=== PATIENT | female | born 1990 | race Hispanic/Latino ===

== ENCOUNTER 2022-07-01 11:09 | Emergency (ER) | payer OTHER ==
--- OUTSIDE RECORDS SUMMARY | 2022-07-01 11:13 | XMS REPORT | Continuity of Care Document ---
:1990 Author Organization [facility] t Address [address] [place] [address] Care Team Providers Name Role Phone CLARISSA FAN Primary Care Physician Unavailable SUSI GLEASON Attending Clinician Unavailable Lab, Ang - Db Attending Clinician Unavailable Susi Aguirre Attending Clinician Clarissa Souza Attending Clinician CLARISSA FAN Attending Clinician Unavailable Doctor Unassigned, [place] Attending Clinician Unavailable Shruthi Burkett RN Attending Clinician Unavailable Only, Ang Db Test Attending Clinician Unavailable Unknown, Attending Attending Clinician Unavailable Bonnie Oseguera Attending Clinician UNKNOWN, ATTENDING Attending Clinician Unavailable [email or web address] Attending Clinician Unavailable CAROLINA LOPEZ Attending Clinician Unavailable [email or web address] Admitting Clinician Unavailable Payers Payer Name Policy Type Policy Number Effective Date Expiration Date S ource [employer] [place] [id number] 2022 00:00:00 WOMEN CIGNA II [id number] 2018 00:00:00 [employer] [place] [id number] 2018 00:00:00 Problems Condition Condition Condition Status Onset Resolution Last Treating Co mments Source Name Details Category Date Date Treatment Clinician Date Shortness Shortness Disease Active Uni vers of breath of breath 5-03 ity of 00:00: [place] 00 Medical Branch Need for Need for Disease Active Unive rs hepatitis hepatitis 5-03 ity of C C 00:00: [place] screening screening [facility] test test Branch History of History of Disease Active U nivers thyroid thyroid 6-12 ity of disease disease 00:00: [place] [address] Medical Branch Chronic Chronic Disease Active Univers fatigue fatigue 6-12 ity of 00:00: [place] [address] Medical Branch Decreased Decreased Disease Active Uni vers appetite appetite 6-12 ity of 00:00: [place] [facility] Anxiety Anxiety Disease Active Univers 6-12 ity of 00:00: [place] [address] Medical Branch Allergies, Adverse Reactions, Alerts Allergy Allergy Status Severity Reaction(s) Onset Inactive Treating Comm ents Source Name Type Date Date Clinician NO KNOWN Drug Active [facility] ALLERGIE Class ity of S [facility] Social History Social Habit Start Date Stop Date Quantity Comments Source Exposure to 2022-01-01 2022-01-11 Not sure [facility] SARS-CoV-2 00:00:00 13:09:00 [facility] (event) Branch Alcohol intake 2022-01-11 2022-01-11 Current [facility] 00:00:00 00:00:00 non-drinker of [facility] alcohol [place] (finding) Tobacco use and 2018-02-20 2018-02-20 Never used Universit y of exposure 00:00:00 00:00:00 [facility] Sex Ass[birth year] At [birth year] Universit y of 00:00:00 00:00:00 [facility] Smoking Status Start Date Stop Date Source Never smoker [facility] Branch Medications Ordered Filled Start Stop Current Ordering Indication Dosage Frequency Signature Comments Components Source Medication Medication Date Date Medication? Clinician (SIG) Name Name SERTraline Yes [id number] Take 1/2 Univers (ZOLOFT) 50 5-03 tab po ity of mg tablet 00:00: daily x 1 [place] 00 week, then Medical increase Branch to 1 tab po daily albuterol Yes [id number] 2{puff} Inhale 2 Univers 90 5-03 Puffs ity of mcg/actuati 00:00: every 6 [place] on inhaler 00 (six) Medical hours as Branch needed for Wheezing or Shortness of Breath. SERTraline Yes [id number] Take 1/2 Univers (ZOLOFT) 50 5-03 tab po ity of mg tablet 00:00: daily x 1 [place] 00 week, then Medical increase Branch to 1 tab po daily albuterol Yes [id number] 2{puff} Inhale 2 Univers 90 5-03 Puffs ity of mcg/actuati 00:00: every 6 [place] on inhaler 00 (six) Medical hours as Branch needed for Wheezing or Shortness of Breath. medroxyPROG Yes 150mg 150 mg by [facility] ESTERone 05-19 Intramuscu ity o f 150 mg/mL 10:05: lar route [place] as injection 04 every 3 Medical (three) Branch months. medroxyPROG Yes 150mg 150 mg by Univers ESTERone 9 Intramuscu ity o f 150 mg/mL 10:05: lar route [place] injection 04 every 3 Medical (three) Branch months. benzonatate Yes [id number] 100mg Take 1 Univers (TESSALON 9-08 capsule by Faith) 100 00:00: mouth 3 [place] mg capsule 00 (three) Medica l times Branch daily as needed for Cough. benzonatate Yes [id number] 100mg Take 1 Univers (TESSALON 9-08 capsule by kendall of MARCUS) 100 00:00: mouth 3 [place] mg capsule 00 (three) Medica l times Branch daily as needed for Cough. SERTraline 2021- No [id number] Take 1/2 Univers (ZOLOFT) 50 2-28 05-03 tab po ity o f mg tablet 00:00[place] 00:00 [place] x 1 [place], then Medical increase Branch to 1 tab po daily SERTraline 2021- No [id number] Take 1/2 Univers (ZOLOFT) 50 2-28 05-03 tab po ity o f mg tablet 00:00: 00:00 [place] x 1 [place] week, then Medical increase Branch to 1 tab po daily Immunizations Ordered Filled Immunization Date Status Comments [facility] e Immunization Name Name TDAP 2019-05-08 Completed [facility] 00:00:00 [facility] TDAP 2019-05-08 Completed University 00:00:00 [facility] Vital Signs Vital Name Observation Time Observation Value Comments Source Systolic blood 2022-01-11 18:37:00 102 mm[Hg] Tong jacome [facility] pressure [facility] Diastolic blood 2022-01-11 18:37:00 69 mm[Hg] Jj casillas [facility] Heart rate 2022-01-11 18:37:00 74 /min [facility] Body height 2022-01-11 18:37:00 162.6 cm [facility] Body weight 2022-01-11 18:37:00 53.524 kg [facility] BMI 2022-01-11 18:37:00 20.25 kg/m2 [facility] Oxygen saturation 2022-01-11 18:37:00 100 /min [facility] in Arterial blood [facility] anch by Pulse oximetry Procedures This patient has no known procedures. Encounters Start End Encounter Admission Attending Care Care Encounter Source Date/Time Date/Time Type Type Clinicians Facility Department ID 2022-02-11 2022-02-11 Outpatient Karsten GLEASON [facility] [id number] Univers 10:30:00 10:30:00 SUSI argueta [facility] 2022-01-11 2022-01-11 Cardroom Manager Lab, Ang - [facility] [id number] Univers 14:15:00 14:30:00 Visit Susi Gleason [facility] [id number] ity of [place] [id number] [place]?BLEA [phone] N[place] nakialeonid YASH [address] MEDICAL OFFICE BUILDING 2022-01-11 2022-01-[address] [facility] [id number] Univers 13:30:00 14:18:38 Visit Susi [facility] [id number] it y of [place] [id number] [place]?BLEA [id number] [address] MEDICAL OFFICE BUILDING 2022-01-11 2022-01-11 Outpatient R ROSIBEL [facility] [id number] Univers 13:30:00 14:18:38 SUSIDAPHNEY argueta [facility] 2022-01-11 2022-01-11 Outpatient R ROSIBEL [facility] [id number] Univers 14:15:00 14:15:00 SUSI argueta [facility] 2021-05-20 2021-05-20 [facility] [id number] Univers 00:00:00 00:00:00 Clarissa [facility] [id number] i ty of [place] [id number] [place]?Blea [phone] [address] Medical Office [facility] 2021-05-19 2021-05-19 [facility] [id number] Univers 09:57:50 10:56:50 Visit Clarissa [facility] [id number] i ty of [place] [id number] [place] Sj?[place]lea [id number] [address] Office [facility] 2021-05-19 2021-05-19 Outpatient R MITA [facility] [id number] Univers 10:00:00 10:00:00 CLARISSA ity [facility] 2021-05-19 2021-05-19 Orders Doctor DARLIN [id number] Univers 00:00:00 00:00:00 Only Unassigned, BELL [id number] ity of [place] [facility] [id number] [place] as [phone] [facility] [address] [place] 2021-05-07 2021-05-07 Letter DARLIN Burkett [id number] Univers 00:00:00 00:00:00 (Out) Shruthi [facility] [id number] it y of HOSPITAL [id number] [place] [phone] [facility] 0[address] [place] 2021-05-06 2021-05-06 Laboratory Only, Ang Db Test [facility] [id number] Univers 10:16:33 10:26:33 Only Unknown, Attending Health [id number] ity of Bonnie Vazquez [id number] [place] Sj?Blea [id number] Nj jt [address] Medical Office Building 2021-05-06 2021-05-06 Outpatient R PINKY [facility] [id number] Univers 10:20:00 10:20:00 ATTENDING [facility] 2020-04-27 2020-04-27 Outpatient R [facility] [id number] Univers 10:00:00 10:00:00 [facility] 2019-12-27 2019-12-27 Outpatient sebastian_k MMG MMG [id number] [place] 11:01:00 11:01:00 [facility] 2019-12-02 2019-12-02 Outpatient R JOHN [facility] [id number] Univers 13:20:00 13:20:00 CAROLINA argueta o f [facility] 2019-11-13 2019-11-13 [id number] Univers 09:00:00 09:00:00 [facility] 2019-11-07 2019-11-07 [facility] [id number] Univers 10:00:00 10:00:00 [facility] 2019-06-28 2019-06-28 Outpatient MHBL [id number] MHBL 01:15:00 01:15:00 2019-03-19 2019-03-19 Outpatient MHBL [id number] MHBL 09:49:00 09:49:00 2021-07-09 2014-09-24 Emergency R [facility] [id number] Univers 12:50:01 23:58:00 [facility] Results This patient has no known results.
[2022-07-01] MEDS ORDERED: ONDANSETRON 4 MG (ODT) TAB ONE (12:08)
[2022-07-01 12:23] LABS: Urine Blood Negative (Negative); Urine Glucose Negative (Negative); Urine Protein 1+ (Negative); Urine Specific Gravity >=1.030 (1.005-1.030); Urine pH 5.5 (5.0-7.0)
--- NOTE | 2022-07-01 13:16 | EDPHYS ---
Physician Documentation [facility] Name: Mili Villagomez Age: 32 yrs Sex: Female : 1990 Arrival Date: 07/01/2022 Time: 11:13 Bed Treatment Private MD: ANA Physician Jt Ventura HPI: 07/01 11:25 This 32 yrs old Female presents to ER via Ambulatory with complaints of Flu jmm Symptoms. 11:25 Onset: The symptoms/episode began/occurred gradually, 1 day(s) ago. Modifying factors: jmm The symptoms are alleviated by nothing. the symptoms are aggravated by nothing. Associated signs and symptoms: Pertinent positives: sore throat, vomiting. It is unknown whether or not the patient has had similar symptoms in the past. Historical: - Allergies: 11: No Known Allergies; iw - Home Meds: 11: None [Active]; iw - PMHx: 11: None; iw - PSHx: 11: None; iw - Immunization history:: Adult Immunizations up to date. - Social history:: Smoking status: Patient denies any tobacco usage or history of. ROS: 11:25 Constitutional: Positive for body aches, fever. jmm 11:25 Respiratory: Positive for cough. 11:25 Abdomen/GI: Positive for vomiting. 11:25 All other systems are negative. Exam: 11:25 Constitutional: This is a well developed, well nourished patient who is awake, alert, jmm and in no acute distress. Head/Face: atraumatic. Eyes: EOMI, no conjunctival erythema appreciated 11:25 Neck: Trachea midline, Supple Chest/axilla: Normal chest wall appearance and motion. Cardiovascular: Regular rate and rhythm. No edema appreciated Respiratory: Normal respirations, no respiratory distress appreciated 11:25 Skin: General appearance color normal MS/ Extremity: Moves all extremities, no obvious deformities appreciated, no edema noted to the lower extremities Neuro: Awake and alert Psych: Behavior is normal, Mood is normal, Patient is cooperative and pleasant 11:25 ENT: Posterior pharynx: erythema, that is mild. 11:25 Abdomen/GI: Inspection: gravid appearance, is noted, Palpation: abdomen is soft and non-tender, in all quadrants. Vital Signs: 12:32 BP 108 / 74; Pulse 99; Resp 18; Temp 99.4; Pulse Ox 100% on R/A; Pain 2/10; hb MDM: 11:25 Patient medically screened. rob 13:15 Data reviewed: vital signs, nurses notes. Counseling: I had a detailed discussion with keyona the patient and/or guardian regarding: the historical points, exam findings, and any diagnostic results supporting the discharge/admit diagnosis, the need for outpatient follow up, to return to the emergency department if symptoms worsen or persist or if there are any questions or concerns that arise at home. 07/01 11:25 Order name: SARS-COV-2 RT PCR (Document "Date of Onset" if Symptomatic); Complete Time: [facility] 12:30 07/01 11:25 Order name: Influenza Screen (a \\T\\ B); Complete Time: 12:02 [facility] 07/01 11:25 Order name: Strep; Complete Time: 12:02 [facility] 07/01 12:03 Order name: Throat Culture [facility] 07/01 12:23 Order name: Urine Dipstick-Ancillary; Complete Time: 12:30 [facility] 07/01 11:48 Order name: Urine Dipstick-Ancillary (obtain specimen); Complete Time: 12:09 [facility] Administered Medications: 12:09 Drug: Ondansetron 4 mg Route: PO; hb Disposition Summary: 07/01/22 13:15 Discharge Ordered Location: Home [facility] Condition: Stable [facility] Diagnosis - Influenza [facility] Followup: [facility] - With: Private Physician - When: 2 - 3 days - Reason: Recheck today's complaints, Continuance of care, Re-evaluation by your physician Discharge Instructions: - Discharge Summary Sheet [facility] - Influenza, Adult [facility] Forms: - Medication Reconciliation Form [facility] - Thank You Letter [facility] - Antibiotic Education [facility] - Prescription Opioid Use [facility] Prescriptions: - Tamiflu 75 mg Oral Capsule - take 1 tablet by ORAL route every 12 hours for 5 days; 10 tablet; Refills: 0, [facility] Product Selection Permitted - ondansetron 4 mg Oral tablet,disintegrating - take 1 tablet by ORAL route every 4-6 hours As needed; 20 tablet; Refills: 0, [facility] Product Selection Permitted Addendum: 07/05/2022 04:06 Co-signature as Attending Physician, Jt Ventura MD I agree with the assessment and c amaral plan of care. Signatures: [facility] Jt Cantrell MD MD cha Mickail, Joel, PA PA jmm Williams, Irene, RN RN Shawnee Ritter RN RN hb
--- NOTE | 2022-07-01 13:16 | ER ---
Nurse's Notes [facility] Name: Mili Villagomez Age: 32 yrs Sex: Female : 1990 Arrival Date: 07/01/2022 Time: 11:13 Bed Treatment Private MD: Diagnosis: Influenza Presentation: 07/01 11:20 Chief complaint: Patient states: yesterday started having chills, cough, h/a , iw vomiting, is 9 weeks , her kids were sick last week. Coronavirus screen: Client presents with at least one sign or symptom that may indicate coronavirus-19. Ebola Screen: Patient negative for fever greater than or equal to 101.5 degrees Fahrenheit, and additional compatible Ebola Virus Disease symptoms Patient denies exposure to infectious person. Patient denies travel to an Ebola-affected area in the 21 days before illness onset. No symptoms or risks identified at this time. Initial Sepsis Screen: Does the patient meet any 2 criteria? No. Patient's initial sepsis screen is negative. Does the patient have a suspected source of infection? No. Patient's initial sepsis screen is negative. Risk Assessment: Do you want to hurt yourself or someone else? Patient reports no desire to harm self or others. Onset of symptoms was June 30, 2022. 11:20 Method Of Arrival: Ambulatory iw 11:20 Acuity: SAMIRA 3 iw 11:20 Acuity: SAMIRA 4 iw Historical: - Allergies: 11:21 No Known Allergies; iw - Home Meds: 11:21 None [Active]; iw - PMHx: 11:21 None; iw - PSHx: 11:21 None; iw - Immunization history:: Adult Immunizations up to date. - Social history:: Smoking status: Patient denies any tobacco usage or history of. Screenin:29 Abuse screen: Denies threats or abuse. Denies injuries from another. Nutritional hb screening: No deficits noted. Tuberculosis screening: No symptoms or risk factors identified. Fall Risk None identified. Assessment: 12:29 General: Appears in no apparent distress. Behavior is calm, cooperative. Pain: Pain hb currently is 3 out of 10 on a pain scale. Neuro: Level of Consciousness is awake, alert, obeys commands, Oriented to person, place, time, situation. Cardiovascular: Patient's skin is warm and dry. Respiratory: Respiratory effort is even, unlabored, Respiratory pattern is regular, symmetrical. GI: Reports nausea, vomiting. : No signs and/or symptoms were reported regarding the genitourinary system. EENT: No signs and/or symptoms were reported regarding the EENT system. Derm: Skin is pink, warm \\T\\ dry. Musculoskeletal: No signs and/or symptoms reported regarding the musculoskeletal system. 13:41 Reassessment: Patient appears in no apparent distress at this time. Patient and/or hb family updated on plan of care and expected duration. Pain level reassessed. Patient is alert, oriented x 3, equal unlabored respirations, skin warm/dry/pink. Vital Signs: 12:32 BP 108 / 74; Pulse 99; Resp 18; Temp 99.4; Pulse Ox 100% on R/A; Pain 2/10; hb ED Course: 11:13 Patient arrived in ED. am2 11:18 Jono Hunter PA is PHCP. [facility] 11:18 Jt Ventura MD is Attending Physician. [facility] 11:21 Triage completed. iw 11:39 Strep Sent. zm 11:39 Influenza Screen (a \\T\\ B) Sent. zm 11:39 SARS-COV-2 RT PCR (Document "Date of Onset" if Symptomatic) Sent. 11:41 Rosanna Pineda, RN is Primary Nurse. iw 12:29 Patient has correct armband on for positive identification. hb 13:41 No provider procedures requiring assistance completed. Patient did not have IV access hb during this emergency room visit. Administered Medications: 12:09 Drug: Ondansetron 4 mg Route: PO; hb Medication: 12:29 VIS not applicable for this client. hb Outcome: 13:15 Discharge ordered by . [facility] 13:41 Discharged to home ambulatory. hb 13:41 Condition: stable 13:41 Discharge instructions given to patient, Instructed on discharge instructions, follow up and referral plans. medication usage, Demonstrated understanding of instructions, follow-up care, medications, Prescriptions given X 2. 13:41 Patient left the ED. hb Signatures: Jono Hunter PA PA Rosanna Cadena, RN Shawnee Juárez RN RN Niyah Keene am2 Colleen Mcclendon
[2022-07-01 13:46] VITALS: BP 108/74; TEMP 99.4; O2SAT 100
== END 2022-07-01 13:41 | disposition home or self-care (01) ==
LOC: ER 11:09
DX: J09.X2 Influenza due to identified novel influenza A virus with other respiratory manifestations (principal)
CPT/HCPCS: 87070; 87081; 81003; 87804 ×2; 99283; U0003; Q0162

== ENCOUNTER 2025-06-17 21:50 | Emergency (ER) | payer BC, OTHER ==
--- OUTSIDE RECORDS SUMMARY | 2025-06-17 21:54 | XMS REPORT | Continuity of Care Document ---
Author Name Unknown Address [address] [facility] [address] [place] [address] [facility] Address [address] [facility] [place] [address] Care Team Providers Care Parts Runner Name Role Phone PCP, PATIENT DOES NOT HAVE A Primary Care Physic nia Unavailable MILAGRO CASTRO Attending Clinician Unavailab Tika Villatoro Attending Clinician Milagro Castro DO Attending Clinician Basilio Sutherland Attending Clinician Unavailab JULIO CESAR Ramsay Attending Clinician Unavailable ROMEO CAMPBELL Attending Clinician UnavailSUSI Cornelius Attending Clinician Unavailable Lab, Ang - Db Attending Clinician Unavailable Susi Aguirre Attending Clinician [phone] Clarissa Souza Attending Clinician CLARISSA FAN Attending Clinician Unavailable Doctor Unassigned, [place] Attending Clinician Matt Burkett RN, Shruthi Wong Attending Clinician Unavailab selvin Only, Ang Db Test Attending Clinician Unavailabl e Unknown, Attending Attending Clinician Unavailab selvin Vazquez [employer], Bonnie Attending Clinician [phone] UNKNOWN, ATTENDING Attending Clinician Unavailab selvin marquez_iain Attending Clinician Unavailable CAROLINA LOPEZ Attending Clinician Unavailable Basilio Sutherland Admitting Clinician Unavailab JULIO CESAR Ramsay Admitting Clinician Unavailable jimmy_iain Admitting Clinician Unavailable Payers Payer Name Policy Type Policy Number Effective Date Expirati on Date Source [employer] OUT OF NETWORK [id number] 2022 00:00:00 [facility] [id number] 2022 00:00:00 2023 00:00:00 [facility] [place] [facility] [id number] 2022 00:00:00 [employer] II [id number] 2018 00:00:00 Problems Condition Name Condition Details Condition Category Status Onset Date Resolution Date Last Treatment Date Treating Clinician Comments Source Hyperchole sterolemia Hyperchole sterolemia Problem Active 2024-09 0-02 00:00: 00 [facility] Medical Cervical atypism Cervical Atypism Problem Active 4-10 00:00: 00 [facility] Abdominal bloating Abdominal Bloating Problem Active 4-10 00:00: 00 [facility] Acute urinary tract infection Acute Urinary Tract Infection Problem Active 1-28 00:00: 00 [facility] Vaginal bleeding during Vaginal bleeding during Disease Active 3-08 00:00: 00 [facility] 28 weeks gestation of 28 weeks gestation of Disease Active 3-08 00:00: 00 [facility] Shortness of breath Shortness of breath Disease Active 5-03 00:00: 00 [facility] Need for hepatitis C screening test Need for hepatitis C screening test Disease Active 5- 00:00: 00 [facility] History of thyroid disease History of thyroid disease Disease Active 02-20 00:00: 00 [facility] Chronic fatigue Chronic fatigue Disease Active 02-20 00:00: 00 [facility] Decreased appetite Decreased appetite Disease Active 02-20 00:00: 00 [facility] Anxiety Anxiety Disease Active 02-20 00:00: 00 [facility] Allergies, Adverse Reactions, Alerts Allergy Name Allergy Type Status Severity Reaction(s) Onset Date Inactive Date Treating Clinician Comments Source No Known Allergie s DA Active U 2015-09 00:00: 00 [facility] NO KNOWN ALLERGIE S Drug Class Active [facility] Social History Social Habit Start Date Stop Date Quantity Comments Source ASSERTION 2022-05-12 00:00:00 [facility] Alcohol intake 2023-04-26 00:00:00 2023-04-26 00:00:00 Ex-drinker (finding) [facility] Tobacco use and exposure 2022-11-16 00:00:00 2022-11-16 00:00:00 Smokeless tobacco non-user [facility] Exposure to SARS-CoV-2 (event) 2022-01-01 00:00:00 2022-01-11 13:09:00 Not sure [facility] History of Social function 2022-01-11 00:00:00 2022-01-11 00:00:00 [facility] Sex Assigned At 1990 00:00:00 1990 00:00:00 [facility] Smoking Status Start Date Stop Date Source Never Smoker [facility] Medical Medications Ordered Medication Name Filled Medication Name Start Date Stop Date Current Medication? Ordering Clinician Indication Dosage Frequency Signature (SIG) Comments Components Source Nexplanon Nexplanon 01-09 00:00: 00 No Nexplanon [facility] vit no.124/iron /folic ( VITAMIN ORAL) 3-10 10:48: 48 Yes Take by mouth. [facility] SERTraline (ZOLOFT) 50 mg tablet 01-11 00:00: 00 Yes [id number] Take 1/2 tab po daily x 1 week, then increase to 1 tab po daily [facility] albuterol 90 mcg/actuati on inhaler 01-11 00:00: 00 Yes [id number] 2{puff} Inhale 2 Puffs every 6 (six) hours as needed for Wheezing or Shortness of Breath. [facility] medroxyPROG ESTERone 150 mg/mL injection 05-19 10:05: 04 Yes 150mg 150 mg by Intramuscu lar route every 3 (three) months. [facility] benzonatate (TESSALON PERLES) 100 mg capsule 05-19 00:00: 00 Yes [id number] 100mg Take 1 capsule by mouth 3 (three) times daily as needed for Cough. [facility] SERTraline (ZOLOFT) 50 mg tablet 11-08 00:00: 00 01-11 00:00 :00 No [id number] Take 1/2 tab po daily x 1 week, then increase to 1 tab po daily [facility] Vital Signs Vital Name Observation Time Observation Value Comments S ource Height 2024-12-19 00:00:00 64 [in_i] [facility] BP Diastolic 2024-12-19 00:00:00 90 mm[Hg] [facility] Body Weight 2024-12-19 00:00:00 142.6 [lb_av] [facility] BMI (Body Mass Index) 2024-12-19 00:00:00 24.5 kg/m2 [facility] BP Systolic 2024-12-19 00:00:00 129 mm[Hg] [facility] Body Weight 2024-10-08 00:00:00 137 [lb_av] [facility] BP Systolic 2024-10-08 00:00:00 125 mm[Hg] [facility] BP Diastolic 2024-10-08 00:00:00 81 mm[Hg] [facility] BMI (Body Mass Index) 2024-10-08 00:00:00 23.5 kg/m2 [facility] Height 2024-10-08 00:00:00 64 [in_i] [facility] Systolic blood pressure 2023-04-27 02:38:33 151 mm[Hg] [facility] Diastolic blood pressure 2023-04-27 02:38:33 97 mm[Hg] [facility] Heart rate 2023-04-27 02:38:33 74 /min [facility] Respiratory rate 2023-04-27 02:38:33 20 /min [facility] Body temperature 2023-04-26 23:59:00 37.22 Giselle [facility] Body height 2023-04-26 23:59:00 162.6 cm [facility] Body weight 2023-04-26 23:59:00 59.285 kg [facility] BMI 2023-04-26 23:59:00 22.43 kg/m2 [facility] Oxygen saturation in Arterial blood by Pulse oximetry 2023-04-26 23:59:00 100 /min [facility] Systolic blood pressure 2022-01-11 18:37:00 102 mm[Hg] [facility] Diastolic blood pressure 2022-01-11 18:37:00 69 mm[Hg] [facility] Heart rate 2022-01-11 18:37:00 74 /min [facility] Body height 2022-01-11 18:37:00 162.6 cm [facility] Body weight 2022-01-11 18:37:00 53.524 kg [facility] BMI 2022-01-11 18:37:00 20.25 kg/m2 [facility] Oxygen saturation in Arterial blood by Pulse oximetry 2022-01-11 18:37:00 100 /min [facility] Procedures Procedure Date / Time Performed Performing Clinician Source US TRANSVAGINAL 2024-12-27 00:00:00 [facility] COMP. METABOLIC PANEL (00571) 2023-04-27 01:39:00 Tika Casper [facility] TOTAL BETA HCG ASSAY 2023-04-27 01:39:00 Girma Casper [facility] CBC WITH DIFF 2023-04-27 01:39:00 Tika Casper [facility] URINALYSIS 2023-04-27 01:39:00 Tika Casper [facility] POCT TEST 2023-04-27 01:39:00 Delilah Casper [facility] ASSIGNMENT OF BENEFITS 2023-04-27 00:38:43 Docto r Unassigned, [place] [facility] CONSENT/REFUSAL FOR DIAGNOSIS AND TREATMENT 2023-04-26 23:36:00 Doctor Unassigned, [place] [facility] [id number] 2022-12-31 00:00:00 JELLYSOMMER [facility] Section 2022-12-31 00:00:00 [facility] Medical Augmentation Mammoplasty 2020-02-10 00:00:00 [facility] Medical Encounters Start Date/Time End Date/Time Encounter Type Admission Type Attending [facility] Care Facility Care Department Encounter ID Source 2025-06-06 00:00:00 2025-06-06 00:00:00 TOSIN Lizama: [address], [place] [phone] , Ph. Formerly [facility] GC_GCBZW_Allie Montemayor* [id number] [facility] 2025-01-01 00:00:00 2025-01-01 00:00:00 LAURYN Moy: [address], [place] [phone] , Ph. [facility] GC_GCBZW_Allie Montemayor* [id number] [facility] 2024-12-27 00:00:00 2024-12-27 00:00:00 Kelly Elizabeth MD: [address], [place] [phone] , Ph. [facility] GC_GCBZW_Allie Montemayor* [id number] [facility] 2024-12-19 00:00:00 2024-12-19 00:00:00 TOSIN Lizama: [address], [place] [address] , Ph. [facility] - GC_GCBZW_La ke Sikes* [id number] [facility] 2024-10-08 00:00:00 2024-10-08 00:00:00 Mary Niharika, [employer]: [address], [place] [address] , Ph. [facility] - GC_GCBZW_La ytler Sikes* [id number] [facility] 2023-04-26 19:01:00 2023-04-26 21:40:00 Emergency MILAGRO GO [facility] ERT [id number] [facility] 2023-04-26 19:01:00 2023-04-26 21:40:00 Emergency Tika Casper Sandra J [facility] ..840.114 350.1.13.10 4.2.7.2.686 [id number] [facility] 2022-12-31 01:51:00 2023-01-03 18:52:00 Inpatient EM Basilio Sutherland [facility] OBPP [id number] [facility] 2022-11-16 16:22:00 2022-11-16 22:49:00 Outpatient JULIO CESAR CORBIN [facility] DORIS [id number] [facility] 2022-10-22 14:25:00 2022-10-22 16:26:00 Emergency ROMEO JONES [id number] [facility] 2022-02-11 10:30:00 2022-02-11 10:30:00 Outpatient SUSI GIMENEZ [facility] [id number] [facility] 2022-01-11 14:15:00 2022-01-11 14:30:00 Merchandise Deliverer Visit Lab, Aleksey - Susi Monsalve [facility] ..840.114 350.1.13.10 4.2.7.2.686 [id number] [facility] 2022-01-11 13:30:00 2022-01-11 14:18:38 Office [facility] 1.2.840.114 350.1.13.10 4.2.7.2.686 [id number] [facility] 2022-01-11 13:30:00 2022-01-11 14:18:38 Outpatient R SUSI GLEASON [facility] [id number] [facility] 2022-01-11 14:15:00 2022-01-11 14:15:00 Outpatient R SUSI GLEASON [facility] [id number] [facility] 2021-05-20 00:00:00 2021-05-20 00:00:00 Telephone Buddy Clarissa Adams [facility] 1.840.114 350.1.13.10 4.2.7.2.686 [id number] [facility] 2021-05-19 09:57:50 2021-05-19 10:56:50 Office Visit Clarissa Fan [facility] 1..840.114 350.1.13.10 4.2.7.2.686 [id number] [facility] 2021-05-19 10:00:00 2021-05-19 10:00:00 Outpatient R CLARISSA FAN [facility] [id number] [facility] 2021-05-19 00:00:00 2021-05-19 00:00:00 Orders Only Doctor Unassigned, [place] [facility] 1.840.114 350.1.13.10 4.2.7.2.686 [id number] [facility] 2021-05-07 00:00:00 2021-05-07 00:00:00 Letter (Out) Madelaine Shruthi Wong [facility] 1..840.114 350.1.13.10 4.2.7.2.686 [id number] [facility] 2021-05-06 10:16:33 2021-05-06 10:26:33 Laboratory Only Only, Ang Db Test Unknown, Attending [facility] 1..840.114 350.1.13.10 4.2.7.2.686 [id number] [facility] 2021-05-06 10:20:00 2021-05-06 10:20:00 Outpatient R UNKNOWN, ATTENDING [facility] [id number] [facility] 2020-04-27 10:00:00 2020-04-27 10:00:00 Outpatient R [facility] [id number] [facility] 2019-12-02 13:20:00 2019-12-02 13:20:00 Outpatient R CAROLINA LOPEZ [facility] [id number] [facility] 2019-11-13 09:00:00 2019-11-13 09:00:00 Outpatient R CLARISSA FAN [facility] [id number] [facility] 2019-11-07 10:00:00 2019-11-07 10:00:00 Outpatient R CLARISSA FAN [facility] [id number] [facility] 2019-06-28 01:15:00 2019-06-28 01:15:00 Outpatient [facility]BL [facility] [id number] [facility] 2019-03-19 09:49:00 2019-03-19 09:49:00 Outpatient [facility] [id number] [facility] 2021-07-09 12:50:01 2014-09-24 23:58:00 Emergency R [facility] [id number] [facility] Results Test Description Test Time Test Comments Results Result Co mments Source [facility] [Units/volume] in Serum or [id number] 00:00:00* Test Item Value Reference Range Interpretation Comme nts TSH (test code = TSH) 1.180 uIU/mL 0.500-4.530 [facility] - Serum or [id number] 00:00:00* Test Item Value Reference Range Interpretation Comme nts cholesterol (test code = cholesterol) 206 mg/dL 0-200 H triglycerides (test code = triglycerides) 100 mg/dL 10-150 HDL cholesterol (test code = HDL cholesterol) 57 mg/dL >50 HDL risk factor (test code = HDL risk factor) 3.6 calc. VLDL cholesterol (test code = VLDL cholesterol) 20 calc dldl (test code = dldl) 137 mg/dL <100 H [facility] Auto Differential panel - [id number] 00:00:00* Test Item Value Reference Range Interpretation Comme nts WBC (test code = WBC) 5.7 10 3.7-12.0 RBC (test code = RBC) 5.31 10 3.60-5.50 HGB (test code = HGB) 15.4 g/dL 11.5-15.6 HCT (test code = HCT) 46.7 % 34.5-46.5 H MCV (test code = MCV) 87.8 um 80.0-102.0 MCH (test code = MCH) 28.9 pg 25.0-34.1 MCHC (test code = MCHC) 32.9 g/dL 29.0-35.0 RDW (test code = RDW) 14.8 % 10.9-16.9 plt (test code = plt) 230 10 136-392 MPV (test code = MPV) 9.6 um 7.4-11.1 gran % (test code = gran %) 64.4 % 36.0-78.0 lymph % (test code = lymph %) 28.3 % 12.0-48.0 mono % (test code = mono %) 5.1 % 0.0-13.0 eos % (test code = eos %) 2 % 0-8 baso % (test code = baso %) 1 % 0-2 gran # (test code = gran #) 3.7 10 1.2-6.8 lymph # (test code = lymph #) 1.6 10 0.7-3.2 mono # (test code = mono #) 0.3 10 0.1-0.8 eos # (test code = eos #) 0.1 10 0.0-0.4 baso # (test code = baso #) 0.0 10 0.0-0.2 [facility] Medicalurinalysis, [id number] 09:02:37* Test Item Value Reference Range Interpretation Comme [facility] Leukocytes (test code = Leukocytes) Negative Nitrite (test code = Nitrite) negative Urobilinogen (test code = Urobilinogen) Normal Protein (test code = Protein) Negative pH (test code = pH) 5.0 Blood (test code = Blood) Negative Specific [place] (test code = Specific [place]) 1.030 Ketone (test code = Ketone) Negative Bilirubin (test code = Bilirubin) Negative Glucose (test code = Glucose) Negative Appearance (test code = Appearance) Cloudy Color (test code = Color) Dark Yellow [facility] MedicalPOCT [id number] 01:39:00* Test Item Value Reference Range Interpretation Comme [facility] POCT PREG (test code = 1605) Negative On board controls acceptable with C Line (test code = 3574) Yes POCT PREG LOT # (test code = 3575) [id number] POCT PREG TEST DATE ( test code = 3576) 09/13/2024 Lab Interpretation (test cod e = 46005-9) Normal [facility] 15:31[facility]00* Test Item Value Reference Range Interpretation Comme [facility] SURGICAL (test code = SR) R UN DATE: 01/06/23 [facility] PAGE 1 RUN TIME: 1531 Specimen Inquiry RUN USER: INTERFACE P ATIENT: DONNA RIVERS LOC: ESTHER U #: [id number] AGE/SX: 32 ROOM: [facility] RE12/31/22REG DR: Basilio Sutherland MD : 89 BED: A DIS: 01/03/23 STATUS: DIS IN TLOC: SPEC #: [id number] RECD: 01/02/23 STATUS: BRENDA RE #: [id number] KERLINE: 12/31/22 [facility] DR: Gre[address] Dr ENTERED: 01/02/23 SP TYPE: SURGICAL OTHR DR: DOES_NOT KNOW Basilio Sutherland MDORDERED: ANATOMIC SPEC, SPEC TRACK, [id number] COPIES TO: DOES_[place] [address] [facility] [address] [place] [address] [email or web address] [facility] [address] [place] [address] PROCEDURES: [id number] (01/02/23) TISSUES: A. PLACENTA, THIRD TRIMESTER (28 + WEEKS) FINAL DIAGNOSIS PLACENTA :- Mature villous morphology, 450 grams, (50th percentile for estimated gestational age). - Mild low grade chronic villitis of undetermined etiology.-Mild acute chorionic plate inflammation. - Umbilical cord with appropriate coils per 10 cm.- Three vessel umbilical cord with no histologic abnormalities. - membranes with no significant diagnostic abnormalities. GROSS DESCRIPTION Received in formalin is a rain placenta with the placental disc measuring 15 x 15 x2.5 cm and weighing 450 gm with a 2 cm in diameter by 16 cm in length at edge, 3 vesselcord with 2 coils per 10 cm. The membranes are mercado and translucent with marginal insertionwith the site of rupture 2 cm from the placental disc. The placental disc has a beefy-redcut surface with no gross lesions identified. Hadoop Developer sections are submitted asfollows:A1: Membrane roll and cordA2: Full thickness placental discA3: Maternal and surfaces CONTINUED ON NEXT PAGE R UN DATE: 01/06/23 [facility] PAGE 2 RUN TIME: 1531 Specimen Inquiry RUN USER: INTERFACE S PEC #: [id number] PATIENT: SAM RIVERSLUPE #[id number] (Continued) GROSS DESCRIPTION (Continued) Technical component performed at [facility] [place] [address], [place] [address] Immunohistochemical stains and Special Stains are performed at [facility] [place], [address] [facility], [address], [place] [address] Unless gross only, the diagnosis is based upon microscopic examination. Immunohistochemistry: This test was developed and its performance characteristicsdetermined by this laboratory. It has not been approved nor does it need approval by [place] Javier FDA. Appropriate positive and negative controls are reviewed and judged to beacceptable. This laboratory is certified under the Clinical Laboratory ImprovementAmendments (CLIA-88) as qualified to perform high complexity clinical laboratory testing. CLINICAL INFORMATION 12/31/22, IUP 35.2 WEEKS, COMPLETE PREVIA. ------ Signed SIGNATURE ON FILE AtulAleksandra 01/06/23 1531 END OF REPORT Notes Date/Time Note Provider Source 2023-04-26 21:40:08 Formatting of this n ote might be different from the original. Pt given printed and verbal discharge instructions regarding vaginal bleeding. Pt verbalized understanding of instructions, pt awake alert oriented, resp reg unlabored, skin w/d, color appropriate for race, moves all ext well,pt encouraged to follow up with pcp and or OBGYN Advised to seek medical attention for new/prolonged/worsening of symptoms. Awake, alert oriented, resp reg unlabored, skin w/d, pt leaving amb with steady gait, in no apparent distress Mayelin Garsia RN [facility] 2023-04-26 18:57:00 Formatting of this n ote might be different from the original. CC: patient presents to the ER with complaints of vaginal bleeding that began two days ago with spotting and bleeding became heavy today. Patient states she had a positive test today. PMHx: see history Awake, alert, oriented, resp reg unlabored, skin warm and dry, color appropriate for race, moves all ext without difficulty, amb without assistance. Appears in no distress. Toyin Rocha RN [facility] 2023-04-26 18:35:00 Formatting of this n ote is different from the original. The patient was signed out pending reevaluation as well as those of her laboratory studies. The patient is doing well here in the ER. Here in the ER her UPT is negative and her beta hCG is 0 as well. Her hemoglobin hematocrit are good and show no need for blood transfusion. She remained stable here in the ER and is okay for discharge home with PCP follow-up. Recent Results (from the past 24 hour(s)) CBC WITH DIFF Collection Time: 04/26/23 8:39 PM Result Value Ref Range WBC 7.98 4.30 - 11.10 10*3/?L RBC 5.11 3.93 - 5.25 10*6/?L HGB 15.2 (H) 11.6 - 15.0 g/dL HCT 44.4 35.7 - 45.2 % MCV 86.9 80.6 - 95.5 fL MCH 29.7 25.9 - 32.8 pg MCHC 34.2 31.6 - 35.1 g/dL RDW-SD 42.3 39.0 - 49.9 fL RDW-CV 13.4 12.0 - 15.5 % PLT 239 166 - 358 10*3/?L MPV 11.0 9.5 - 12.9 fL NRBC/100 WBC 0.0 0.0 - 10.0 /100 WBCs NRBC x10^3 <0.01 10*3/?L GRAN MAT (NEUT) % 65.3 % IMM GRAN % 0.40 % LYMPH % 25.4 % MONO % 7.1 % EOS % 1.0 % BASO % 0.8 % GRAN MAT x10^3(ANC) 5.21 1.88 - 7.09 10*3/uL IMM GRAN x10^3 0.03 0.00 - 0.06 10*3/uL LYMPH x10^3 2.03 1.32 - 3.29 10*3/uL MONO x10^3 0.57 0.33 - 0.92 10*3/uL EOS x10^3 0.08 0.03 - 0.39 10*3/uL BASO x10^3 0.06 0.01 - 0.07 10*3/uL POCT TEST Collection Time: 04/26/23 8:39 PM Result Value Ref Range POCT PREG Negative On board controls acceptable with C Line Yes POCT PREG LOT # [id number] POCT PREG TEST DATE 09/13/2024 COMP. METABOLIC PANEL (17721) Collection Time: 04/26/23 8:39 PM Result Value Ref Range NA 140 135 - 145 mmol/L K 3.7 3.5 - 5.0 mmol/L CL 105 98 - 108 mmol/L CO2 TOTAL 26 23 - 31 mmol/L AGAP 9 2 - 16 BUN 16 7 - 23 mg/dL GLUCOSE 94 70 - 110 mg/dL CREATININE 0.85 0.50 - 1.04 mg/dL TOTAL BILI 1.1 0.1 - 1.1 mg/dL CALCIUM 9.3 8.6 - 10.6 mg/dL T PROTEIN 8.1 6.3 - 8.2 g/dL ALBUMIN 4.7 3.5 - 5.0 g/dL ALK PHOS 63 34 - 122 U/L ALTv 12 5 - 35 U/L AST(SGOT) 22 13 - 40 U/L eGFR 78.0 mL/min/1.73m2 TOTAL BETA HCG ASSAY Collection Time: 04/26/23 8:39 PM Result Value Ref Range BETA HCG <2.39 Non- female and male patients: <5 mIU/mL Milagro Castro DO 04/26/23 2135 [employer] [facility]
--- NOTE | 2025-06-17 21:59 | EDPHYS ---
Physician Documentation [facility] Name: Mili Villagomez Age: 35 yrs Sex: Female : 1990 Arrival Date: 06/17/2025 Time: 21:50 Bed IW6 Private MD: ED Physician Dinora Cabello HPI: 06/17 23:10 This 35 yrs old Female presents to ER via Ambulatory with complaints of sb4 Toothache. 23:10 Patient reports right upper tooth/gum pain for a few days now. States that she had a sb4 routine cleaning last week and ever since she has had pain in that area. She states she has noticed some redness and swelling in her gum, but is not sure if that is because she has been brushing harder to try and make it feel better. She denies any prior issues with that tooth, did not have any fillings or injections there. She does have a crown on that tooth. Denies any fever or chills. States she took Tylenol Motrin prior to arrival with minimal relief in symptoms. 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 - Infectious Disease History:: Denies. - Social history:: Smoking status: Patient denies any tobacco usage or history of. ROS: 23:10 Constitutional: Negative for fever, chills, and weight loss, sb4 23:10 ENT: Positive for dental pain, Gum pain 23:10 All other systems are negative, Exam: 23:10 Head/Face: Normocephalic, atraumatic. Eyes: Extra-ocular motions intact. Periorbital sb4 areas with no swelling, redness, or edema. Respiratory: No increased work of breathing, no retractions or nasal flaring. Skin: Warm, dry with normal turgor. Normal color with no rashes, no lesions, and no evidence of cellulitis. 23:10 Constitutional: The patient appears alert, awake, uncomfortable, 23:10 ENT: Dental exam: gum swelling, that is mild, specifically in the upper left first molar (#14), pain, Vital Signs: 21:54 BP 147 / 101; Pulse 70; Resp 18; Temp 98.1; Pulse Ox 100% ; Weight 68.04 kg; Height 5 cp4 ft. 4 in. ; Pain 10; 21:54 Body Mass Index 25.75 (68.04 kg, 162.56 cm) cp4 21:54 Pain Scale: Adult cp4 MDM: 21:52 Medical Screening Exam initiated sb4 23:10 Differential diagnosis: dental caries, gingivitis, dental abscess. Data reviewed: vital sb4 signs, nurses notes, and as a result, I will discharge patient. Counseling: I had a detailed discussion with the patient and/or guardian regarding the historical points, exam findings, and any diagnostic results supporting the discharge/admit diagnosis, the need for outpatient follow up, a dentist, to return to the emergency department if symptoms worsen or persist or if there are any questions or concerns that arise at home. ED course: Patient has a dentist appointment tomorrow. Will provide analgesia and prescription for antibiotics at this time. Administered Medications: 22:03 Drug: Hydrocodone-Acetaminophen PO (7.5 mg-325 mg) 1 tabs PO once Route: PO; cp4 22:04 Follow up: Response: No adverse reaction cp4 22:03 Drug: Amoxicillin-Clavulanate PO 875 mg PO once Route: PO; cp4 22:04 Follow up: Response: No adverse reaction cp4 22:03 Drug: Ondansetron PO 4 mg PO once Route: PO; cp4 22:04 Follow up: Response: No adverse reaction cp4 Disposition Summary: 06/17/25 21:58 Discharge Ordered Notes: Location: Home sb4 Problem: new sb4 Symptoms: are unchanged sb4 Condition: Stable sb4 Diagnosis - Acute gingivitis sb4 - Acute dental pain sb4 Followup: sb4 - With: Private Physician - When: As needed - Reason: Recheck today's complaints, Re-evaluation by your physician Discharge Instructions: - Discharge Summary Sheet sb4 - Dental Pain, [id number] sb4 - Gingivitis, [id number] sb4 Forms: - Antibiotic Education sb4 - Patient Portal Instructions sb4 - Leadership Thank You Letter sb4 Prescriptions: - Augmentin 875-125 mg Oral tablet - take 1 tablet ORAL route every 12 hours for 7 days; 14 tablet; Refills: 0, sb4 Product Selection Permitted - Ibuprofen 800 mg Oral Tablet - take 1 tablet ORAL route every 8 hours As needed take with food; 30 tablet; sb4 Refills: 0, Product Selection Permitted Signatures: Debby Villalobos PA-C PA-C sb4 Melinda Piedra cp4
--- NOTE | 2025-06-17 21:59 | ER ---
Nurse's Notes [facility] Name: Mili Villagomez Age: 35 yrs Sex: Female : 1990 Arrival Date: 06/17/2025 Time: 21:50 Bed IW6 Private MD: Diagnosis: Acute gingivitis;Acute dental pain Presentation: 06/17 21:54 Chief complaint: Patient states: toothache that started after going to the dentist the cp4 other day. Coronavirus screen: Client denies travel out of the [place] in the last 14 days. At this time, the client does not indicate any symptoms associated with coronavirus-19. Ebola Screen: Patient negative for fever greater than or equal to 101.5 degrees Fahrenheit, and additional compatible Ebola Virus Disease symptoms Patient denies exposure to infectious person. Patient denies travel to an Ebola-affected area in the 21 days before illness onset. No symptoms or risks identified at this time. Initial Sepsis Screen: Does the patient meet any 2 criteria? No. Patient's initial sepsis screen is negative. Does the patient have a suspected source of infection? No. Patient's initial sepsis screen is negative. Risk Assessment: Do you want to hurt yourself or someone else? Patient reports no desire to harm self or others. Onset of symptoms was June 14, 2025. 21:54 Method Of Arrival: Ambulatory cp4 21:54 Acuity: SAMIRA 5 cp4 Triage Assessment: 21:56 General: Appears in no apparent distress. uncomfortable, Behavior is calm, cooperative, cp4 appropriate for age. Pain: Complains of pain in mouth Pain does not radiate. Pain currently is 10 out of 10 on a pain scale. EENT: Reports pain in mouth. EVENT MARKETING INTERN: 21:56 LMP 05/31/2025, unknown cp4 Historical: - Allergies: 21:56 No Known Allergies; cp4 - Immunization history:: Adult Immunizations up to date. - Infectious Disease History:: Denies. - Social history:: Smoking status: Patient denies any tobacco usage or history of. Screenin:58 [facility] ED Fall Risk Assessment (Adult) History of falling in the last 3 months, cp4 including since admission No falls in past 3 months (0 pts) Confusion or Disorientation No (0 pts) Intoxicated or Sedated No (0 pts) Impaired Gait No (0 pts) Mobility Assist Device Used No (0 pt) Altered Elimination No (0 pt) Score/Fall Risk Level 0 - 2 = Low Risk Oriented to surroundings, Maintained a safe environment, Assessed \T\ reinforced patient's understanding of fall precautions, Hourly rounding (assess needs \T\ fall precautionary measures) done. Abuse screen: Denies threats or abuse. Denies injuries from another. Nutritional screening: No deficits noted. Tuberculosis screening: No symptoms or risk factors identified. Never had TB. Assessment: 21:58 General: Appears in no apparent distress. uncomfortable, Behavior is calm, cooperative, cp4 appropriate for age. Pain: Complains of pain in mouth Pain does not radiate. Pain currently is 10 out of 10 on a pain scale. Neuro: Level of Consciousness is awake, alert, obeys commands, Oriented to person, place, time, situation. Cardiovascular: Patient's skin is warm and dry. Respiratory: Airway is patent Respiratory effort is even, unlabored. GI: No signs and/or symptoms were reported involving the gastrointestinal system. : No signs and/or symptoms were reported regarding the genitourinary system. EENT: No signs and/or symptoms were reported regarding the EENT system. Derm: No signs and/or symptoms reported regarding the dermatologic system. Musculoskeletal: No signs and/or symptoms reported regarding the musculoskeletal system. Vital Signs: 21:54 BP 147 / 101; Pulse 70; Resp 18; Temp 98.1; Pulse Ox 100% ; Weight 68.04 kg; Height 5 cp4 ft. 4 in. ; Pain 10/10; 21:54 Body Mass Index 25.75 (68.04 kg, 162.56 cm) cp4 21:54 Pain Scale: Adult cp4 ED Course: 21:51 Patient arrived in ED. mr 21:52 Debby Villalobos PA-C is PHCP. sb4 21:52 Dinora Cabello MD is Attending Physician. sb4 21:56 Triage completed. cp4 21:56 Arm band placed on right wrist. Patient placed in waiting room. cp4 21:58 Bed in low position. Call light in reach. Side rails up X 1. Provided Education on: cp4 toothache. 21:58 No provider procedures requiring assistance completed. Patient did not have IV access cp4 during this emergency room visit. Administered Medications: 22:03 Drug: Hydrocodone-Acetaminophen PO (7.5 mg-325 mg) 1 tabs PO once Route: PO; cp4 22:04 Follow up: Response: No adverse reaction cp4 22:03 Drug: Amoxicillin-Clavulanate PO 875 mg PO once Route: PO; cp4 22:04 Follow up: Response: No adverse reaction cp4 22:03 Drug: Ondansetron PO 4 mg PO once Route: PO; cp4 22:04 Follow up: Response: No adverse reaction cp4 Medication: 21:58 VIS not applicable for this client. cp4 Outcome: :58 Discharge ordered by MD. sb4 22:04 Discharged to home ambulatory, cp4 22:04 Condition: stable 22:04 Discharge instructions given to patient, family, Instructed on discharge instructions, follow up and referral plans. medication usage, Demonstrated understanding of instructions, follow-up care, medications, Prescriptions given X 2, 22:05 Patient left the ED. cp4 Signatures: Estefanía Rocha, Debby Anderson PA-C PA-C sb4 Melinda Piedra cp4
[2025-06-17] MEDS ORDERED: ONDANSETRON 4 MG (ODT) TAB ONE (22:01)
[2025-06-17] MEDS ORDERED: AMOX/K CLAV 875 MG TAB ONE (22:01)
[2025-06-17] MEDS ORDERED: HYDROCODONE/APAP 7.5/325 MG TAB ONE (22:02)
== END 2025-06-17 22:05 | disposition home or self-care (01) ==
LOC: ER 21:50
DX: K08.89 Other specified disorders of teeth and supporting structures (principal); K05.00 Acute gingivitis, plaque induced
CPT/HCPCS: 99283; Q0162

== ENCOUNTER 2025-07-02 13:27 | Emergency (ER) | payer BC ==
[2025-07-02 14:39] LABS: Absolute Lymphocytes (CBC) 1.7 K/uL (0.7-4.9); Hematocrit 42.9 % (36.0-45.0); Hemoglobin 15.2 g/dL (12.0-15.0); MCH 30.3 pg (27.0-35.0); MCHC 35.5 g/dL (32.0-36.0); MCV 85.3 fL (80-100); MPV 8.5 fL (7.6-11.3); Nucleated RBC Absolute Count 0.0 (0-0); Nucleated Red Blood Cells % 0.1 % (0-0); RBC Red Blood Cell Count 5.03 M/uL (3.86-4.86); White Blood Count 7.20 thou/uL (4.3-10.9)
--- NOTE | 2025-07-02 14:56 | RAD REPORT ---
Procedure: Chest Single View HISTORY: Chest pain COMPARISON: none FINDINGS: The lungs appear clear of acute infiltrate. No significant pleural effusion noted. The heart is normal size. IMPRESSION: No acute abnormality is displayed.
[2025-07-02 14:59] LABS: D-Dimer 0.478 FEUug/mL (0-0.500); PT Prothrombin Time 11.9 SECONDS (10-13.0); Protime INR 1.05
[2025-07-02 15:06] LABS: ALT/SGPT 17.0 U/L (13-56); AST/SGOT 15.0 U/L (15-37); Albumin 3.7 g/dL (3.4-5.0); Albumin/Globulin Ratio 1.0 (1.1-1.8); Alkaline Phosphatase 53.0 U/L (45-117); Anion Gap 8.7 mEq/L (5.0-15.0); BUN Blood Urea Nitrogen 12.0 mg/dL (7-18); Bilirubin Indirect, Calculated 0.5 mg/dL (0.2-0.8); Globulin 3.6 g/dL (2.3-3.5); Glucose Level 98.0 mg/dL (74-106); Magnesium 2.0 mg/dL (1.6-2.4); NT PRO-BNP 68.0 pg/mL (<125); Potassium 3.7 mEq/L (3.5-5.1); Thyroid Stimulating Hormone 0.933 uIU/mL (0.358-3.740); Troponin High Sensitivity 3.9 pg/mL (<58.9)
[2025-07-02] MEDS ORDERED: KETOROLAC 30 MG/ML INJ ONE (15:28)
[2025-07-02] MEDS ORDERED: NA CHLORIDE 0.9% 1,000 ML ONE (15:28)
--- NOTE | 2025-07-02 15:56 | EDPHYS ---
Physician Documentation [facility] Name: Mili Villagomez Age: 35 yrs Sex: Female : 1990 Arrival Date: 07/02/2025 Time: 13:27 Bed 20 Private MD: ED Physician Jt Ventura HPI: 07/02 14:43 This 35 yrs old Female presents to ER via Ambulatory with complaints of Chest sb4 Pain - X3DAYS. 14:43 Patient reports intermittent chest pain x 3 days. She states that she first is sb4 experiencing on her right lateral rib cage area and it was a sharp pain. States that now it is in the center of her chest and is more of a dull ache. States that when the pain comes on, her hands get sweaty, she feels nauseous, gets dizzy and short of breath. States that she has been under more stress than usual. Denies any medical history, does not take any medications on a daily basis. Historical: - Allergies: 13:38 No Known Allergies; bp - PMHx: 13:38 None; bp - Immunization history:: Adult Immunizations up to date. - Infectious Disease History:: Denies. - Social history:: Smoking status: Patient denies any tobacco usage or history of. ROS: 14:43 Constitutional: Negative for fever, chills, and weight loss, sb4 14:43 Cardiovascular: Positive for chest pain, 14:43 All other systems are negative, Exam: 14:43 Constitutional: This is a well developed, well nourished patient who is awake, alert, sb4 and in no acute distress. Head/Face: Normocephalic, atraumatic. Eyes: Extra-ocular motions intact. Periorbital areas with no swelling, redness, or edema. ENT: Mucous membranes moist. Cardiovascular: Regular rate and rhythm with a normal S1 and S2. Respiratory: No increased work of breathing, no retractions or nasal flaring. Abdomen/GI: Soft, non-tender, no distension. Skin: Warm, dry with normal turgor. Normal color with no rashes, no lesions, and no evidence of cellulitis. Vital Signs: 13:37 BP 131 / 92; Pulse 80; Resp 16; Temp 97.4; Pulse Ox 100% ; bp 14:36 BP 133 / 86; Pulse 70; Resp 18; Pulse Ox 100% on R/A; db 15:33 BP 128 / 90; Pulse 78; Resp 16; Pulse Ox 96% on R/A; db 16:00 BP 142 / 88; Pulse 79; Resp 16; Pulse Ox 98% on R/A; db MDM: 13:47 Medical Screening Exam initiated sb4 14:43 Differential diagnosis: anxiety, abnormal EKG, thyroid abnormality, electrolyte sb4 abnormality, IUP, anemia. 15:57 Data reviewed: vital signs, nurses notes, lab test result(s), EKG, radiologic studies, sb4 and as a result, I will discharge patient. Scoring Tools HEART Score: History: ECG: Age: Risk Factors: No Risk Factors Known (0), Troponin: Total Score = 0. Counseling: I had a detailed discussion with the patient and/or guardian regarding the historical points, exam findings, and any diagnostic results supporting the discharge/admit diagnosis, lab results, radiology results, the need for outpatient follow up, for definitive care, to return to the emergency department if symptoms worsen or persist or if there are any questions or concerns that arise at home. Special discussion: Based on the patient's history, exam, and Dx evaluation, there is no indication for emergent intervention or inpatient Tx. It is understood by the patient/guardian that if the Sx's persist or worsen they need to return immediately for re-evaluation. 07/02 13:53 Order name: Basic Metabolic Panel; Complete Time: 15:06 sb4 07/02 13:53 Order name: CBC with Diff; Complete Time: 14:43 sb4 07/02 13:53 Order name: D-Dimer; Complete Time: 15:00 sb4 07/02 13:53 Order name: LFT's; Complete Time: 15:06 sb4 07/02 13:53 Order name: Magnesium; Complete Time: 15:06 sb4 07/02 13:53 Order name: NT PRO-BNP; Complete Time: 15:06 sb4 07/02 13:53 Order name: PT-INR; Complete Time: 15:00 sb4 07/02 13:53 Order name: Troponin HS; Complete Time: 15:06 sb4 07/02 13:53 Order name: TSH; Complete Time: 15:06 sb4 07/02 13:53 Order name: XRAY Chest (1 view); Complete Time: 14:57 sb4 07/02 13:53 Order name: EKG; Complete Time: 13:53 sb4 07/02 13:53 Order name: Cardiac monitoring; Complete Time: 15:37 sb4 07/02 13:53 Order name: EKG - Nurse/Tech; Complete Time: 15:37 sb4 07/02 13:53 Order name: IV Saline Lock; Complete Time: 15:37 sb4 07/02 13:53 Order name: Labs collected and sent; Complete Time: 15:37 sb4 07/02 13:53 Order name: O2 Per Protocol; Complete Time: 15:37 sb4 07/02 13:53 Order name: O2 Sat Monitoring; Complete Time: 15:37 sb4 EC:39 Rate is 75 beats/min. Rhythm is regular, Normal Sinus Rhythm. MD interval is normal at sb4 126 msec. QRS interval is normal at 66 msec. QT interval is normal at 386 msec. No Q waves. T waves are Normal. No ST changes noted. Clinical impression: Normal ECG. Interpreted by me. Reviewed by me. Administered Medications: 15:33 Drug: NS 0.9% IV 1000 ml IV at 1 bolus Per protocol; to be given as a bolus over 60 me1 minutes Route: IV; Rate: 1 bolus; Site: right antecubital; 16:16 Follow up: Response: No adverse reaction; IV Status: Completed infusion db 15:34 Drug: Ketorolac IVP 15 mg IVP once Route: IVP; Site: right antecubital; me1 16:16 Follow up: Response: No adverse reaction db Disposition Summary: 07/02/25 15:56 Discharge Ordered Notes: Location: Home sb4 Problem: new sb4 Symptoms: have improved sb4 Condition: Stable sb4 Diagnosis - Chest pain, unspecified sb4 Followup: sb4 - With: Emergency Department - When: As needed - Reason: Trouble breathing, Worsening of condition Discharge Instructions: - Discharge Summary Sheet sb4 - Nonspecific Chest Pain, Adult, [id number] sb4 Forms: - Patient Portal Instructions sb4 - Leadership Thank You Letter sb4 Prescriptions: - Anaprox DS 550 mg Oral Tablet - take 1 tablet ORAL route every 12 hours As needed; 20 tablet; Refills: 0, sb4 Product Selection Permitted - Cyclobenzaprine 5 mg Oral Tablet - take 1 tablet ORAL route 3 times per day As needed; 15 tablet; Refills: 0, sb4 Product Selection Permitted Signatures: Dispatcher [employer] Nura Bah, RN RN Debby Carmona PA-C PA-C sb4 Linda Boogie RN RN me1 Selma Thompson RN db
--- NOTE | 2025-07-02 15:56 | ER ---
Nurse's Notes [facility] Name: Mili Villagomez Age: 35 yrs Sex: Female : 1990 Arrival Date: 07/02/2025 Time: 13:27 Bed 20 Private MD: Diagnosis: Chest pain, unspecified Presentation: 07/02 13:37 Chief complaint: Patient states: SUBSTERNAL CP WITH URRUTIA x3 DAYS, NON-REPRODUCIBLE. bp Coronavirus screen: At this time, the client does not indicate any symptoms associated with coronavirus-19. Ebola Screen: No symptoms or risks identified at this time. Initial Sepsis Screen: Does the patient meet any 2 criteria? No. Patient's initial sepsis screen is negative. Does the patient have a suspected source of infection? No. Patient's initial sepsis screen is negative. Risk Assessment: Do you want to hurt yourself or someone else? Patient reports no desire to harm self or others. Onset of symptoms is unknown. 13:37 Method Of Arrival: Ambulatory bp 13:37 Acuity: SAMIRA 3 bp Triage Assessment: 13:38 General: Appears in no apparent distress. Behavior is cooperative, appropriate for age, bp anxious. Pain: Complains of pain in chest. EENT: No deficits noted. Neuro: No deficits noted. Cardiovascular: Reports chest pain. Respiratory: No deficits noted. GI: No signs and/or symptoms were reported involving the gastrointestinal system. : No signs and/or symptoms were reported regarding the genitourinary system. Derm: No deficits noted. Musculoskeletal: No deficits noted. Historical: - Allergies: 13:38 No Known Allergies; bp - PMHx: 13:38 None; bp - Immunization history:: Adult Immunizations up to date. - Infectious Disease History:: Denies. - Social history:: Smoking status: Patient denies any tobacco usage or history of. Screenin:[address] [facility] ED Fall Risk Assessment (Adult) History of falling in the last 3 months, db including since admission No falls in past 3 months (0 pts) Confusion or Disorientation No (0 pts) Intoxicated or Sedated No (0 pts) Impaired Gait No (0 pts) Mobility Assist Device Used No (0 pt) Altered Elimination No (0 pt) Score/Fall Risk Level 0 - 2 = Low Risk Oriented to surroundings, Maintained a safe environment. Abuse screen: Denies threats or abuse. Denies injuries from another. Nutritional screening: No deficits noted. Tuberculosis screening: No symptoms or risk factors identified. Assessment: 14:15 Reassessment: Patient appears in no apparent distress at this time. Patient and/or db family updated on plan of care and expected duration. Pain level reassessed. Patient is alert, oriented x 3, equal unlabored respirations, skin warm/dry/pink. General: Appears in no apparent distress. comfortable, Behavior is calm, cooperative. Pain: Complains of pain in chest Pain radiates to abdomen Pain began gradually, 1 day ago. Cardiovascular: Rhythm is sinus rhythm. Respiratory: Airway is patent Respiratory effort is even, unlabored, Respiratory pattern is regular, symmetrical. 15:38 Reassessment: Patient appears in no apparent distress at this time. Patient and/or db family updated on plan of care and expected duration. Pain level reassessed. Patient is alert, oriented x 3, equal unlabored respirations, skin warm/dry/pink. General: Appears in no apparent distress. comfortable, Behavior is calm, cooperative. Neuro: Level of Consciousness is awake, alert, obeys commands, Oriented to person, place, time, situation. 16:00 Reassessment: Patient appears in no apparent distress at this time. Patient and/or db family updated on plan of care and expected duration. Pain level reassessed. Patient is alert, oriented x 3, equal unlabored respirations, skin warm/dry/pink. Vital Signs: 13:37 BP 131 / 92; Pulse 80; Resp 16; Temp 97.4; Pulse Ox 100% ; bp 14:36 BP 133 / 86; Pulse 70; Resp 18; Pulse Ox 100% on R/A; db 15:33 BP 128 / 90; Pulse 78; Resp 16; Pulse Ox 96% on R/A; db 16:00 BP 142 / 88; Pulse 79; Resp 16; Pulse Ox 98% on R/A; db Vitals: 15:41 Cardiac Rhythm Assessment Regular Sinus rhythm. db ED Course: 13:29 Patient arrived in ED. cj3 13:38 Triage completed. bp 13:38 Arm band placed on. bp 13:47 Debby Villalobos PA-C is PHCP. sb4 13:47 Jt Ventura MD is Attending Physician. sb4 14:03 Selma Thompson, RN is Primary Nurse. db 14:15 Patient has correct armband on for positive identification. Bed in low position. Call db light in reach. Side rails up X 1. Client placed on continuous cardiac and pulse oximetry monitoring. NIBP monitoring applied. potline monitor on. Pulse ox on. NIBP on. Warm blanket given. Pillow given. 14:15 Initial lab(s) drawn, by me, sent to lab. Inserted saline lock: 20 gauge in right db antecubital area, using aseptic technique. Blood collected. Flushed with 10 mL NS. 14:15 EKG done. Patient maintains SpO2 saturation greater than 95% on room air. db 14:35 XRAY Chest (1 view) In Process Unspecified. EDMS 16:14 Provided Education on: DISCHARGE AND FOLLOWUP. db 16:14 No provider procedures requiring assistance completed. IV discontinued, intact, db bleeding controlled, No redness/swelling at site. Administered Medications: 15:33 Drug: NS 0.9% IV 1000 ml IV at 1 bolus Per protocol; to be given as a bolus over 60 me1 minutes Route: IV; Rate: 1 bolus; Site: right antecubital; 16:16 Follow up: Response: No adverse reaction; IV Status: Completed infusion db 15:34 Drug: Ketorolac IVP 15 mg IVP once Route: IVP; Site: right antecubital; me1 16:16 Follow up: Response: No adverse reaction db Medication: 14:15 VIS not applicable for this client. db Outcome: 15:56 Discharge ordered by . sb4 16:14 Discharged to home ambulatory, with family, db 16:14 Condition: stable 16:14 Discharge instructions given to patient, Instructed on discharge instructions, follow up and referral plans. Prescriptions given X 2, 16:16 Patient left the ED. db Signatures: Dispatcher [employer] EDNura Fernandez RN RN bp Benton, Danielle, RN RN db Debby Villalobos, PAMeliaC PAArden sb4 Linda Boogie RN RN me1 Petra Eddy cj3
[2025-07-02 18:53] VITALS: TEMP 97.4
[2025-07-02 18:57] VITALS: BP 142/88; O2SAT 98
== END 2025-07-02 16:16 | disposition home or self-care (01) ==
LOC: ER 13:27
DX: R07.9 Chest pain, unspecified (principal)
CPT/HCPCS: 96361; 93005; 85025; 80048; 36415; 83735; 85610; 85379; 80076; 84443; 84484; 83880; 71045; 96374; 99285; J1885; J7030